=== PATIENT | male | born 1960 | race Caucasian/White ===

== ENCOUNTER 2016-06-13 09:28 | Day surgery (SDC) | payer BC ==
[~2016-06-13] VITALS: Ht 180.3 cm; Wt 101.1 kg
[~2016-06-13 09:28] MED LIST: ASPIRIN LO-DOSE81 MG PO; FISH OIL 1,0001 EAC1 PO; GLUCOPHAGE500 MG PO; LIPITOR80 MG PO; MULTI VITAMIN1 EACH PO; NIACIN CONTROL500 MG PO; PRILOSEC20 MG PO; VALSARTAN-HCTZ1 EAC3 PO; VITAMIN D-32000 UNI1 PO
== END 2016-06-13 11:25 | disposition disaster alternative care site (69) ==
LOC: GEND 09:28 → GPOC 14:00
PROC: 0D728ZZ Dilation of Middle Esophagus, Via Natural or Artificial Opening Endoscopic (ICD-10-PCS; principal; 2016-06-13)
PROC: 0DB58ZX Excision of Esophagus, Via Natural or Artificial Opening Endoscopic, Diagnostic (ICD-10-PCS; 2016-06-13)
PROC: 0DB68ZX Excision of Stomach, Via Natural or Artificial Opening Endoscopic, Diagnostic (ICD-10-PCS; 2016-06-13)
DX: R13.10 Dysphagia, unspecified (principal); I10 Essential (primary) hypertension; E11.9 Type 2 diabetes mellitus without complications; Z79.899 Other long term (current) drug therapy; Z79.82 Long term (current) use of aspirin
CPT/HCPCS: C1726; J2001; J7030